=== PATIENT | male | born 1975 | race Caucasian/White ===

== ENCOUNTER 2020-12-26 12:10 | Emergency (ER) | payer OTHER ==
[~2020-12-26 12:10] MED LIST: IBUPROFEN800 MG PO; PREDNISONE 20MG20 MG PO; VIBRAMYCIN100 MG PO
[2020-12-26] MEDS ORDERED: CEPHALEXIN500 MG PO (15:01)
== END 2020-12-26 15:12 | disposition home or self-care (01) ==
LOC: FER 12:10
DX: S51.812A Laceration without foreign body of left forearm, initial encounter (principal); F17.210 Nicotine dependence, cigarettes, uncomplicated; W24.1XXA Contact with transmission devices, not elsewhere classified, initial encounter; Y92.009 Unspecified place in unspecified non-institutional (private) residence as the place of occurrence of the external cause
CPT/HCPCS: 73090; 90471; 90715